=== PATIENT | male | born 1960 | race Caucasian/White ===

== ENCOUNTER 2019-10-20 01:05 | Emergency (ER) | payer MEDICAID ==
[~2019-10-20] VITALS: Ht 172.7 cm; Wt 77.3 kg
--- NOTE | 2019-10-20 01:27 | NUR ---
pt cannot recall what his seizure medication or pain medications are
[2019-10-20 02:27] LABS: URINE AMPHETAMINE SCREEN POSITIVE (Neg); URINE BARBITUATE SCREEN NEGATIVE (Neg); URINE BENZODIAZEPINES SCREEN NEGATIVE (Neg); URINE CANNABINOID SCREEN NEGATIVE (Neg); URINE COCAINE SCREEN NEGATIVE (Neg); URINE METHADONE SCREEN NEGATIVE (Neg); URINE OPIATE SCREEN NEGATIVE (Neg); URINE PHENCYCLIDINE SCREEN NEGATIVE (Neg)
[2019-10-20 02:32] LABS: BASOPHILS % (AUTO) 0.6 % (0-1); EOSINOPHILS # (AUTO) 0.2 X10'3 (0-0.9); EOSINOPHILS % (AUTO) 1.9 % (0-6); HEMOGLOBIN 15.2 g/dl (14.0-17.9); LYMPHOCYTES # (AUTO) 2.2 X10'3 (1.1-4.8); LYMPHOCYTES % (AUTO) 25.1 % (21-51); MEAN CORPUSCULAR HEMOGLOBIN 33.1 PG (27.0-31.0); MEAN CORPUSCULAR HGB CONC 34.5 g/dL (33.0-36.5); MEAN CORPUSCULAR VOLUME 95.9 FL (78-98); MEAN PLATELET VOLUME 7.8 FL (7.4-10.4); MONOCYTES # (AUTO) 0.7 X10'3 (0-0.9); MONOCYTES % (AUTO) 8.1 % (2-12); NEUTROPHILS # (AUTO) 5.7 X10'3 (1.8-7.7); NEUTROPHILS % (AUTO) 64.3 % (42-75); PLATELET COUNT 254 X10'3 (140-440); RED BLOOD COUNT 4.59 X10'6 (4.70-6.10); RED CELL DISTRIBUTION WIDTH 13.7 % (11.5-14.5); WHITE BLOOD COUNT 8.9 X10'3 (4.5-11.0)
[2019-10-20 02:33] LABS: ALANINE AMINOTRANSFERASE 25 U/L (12-78); ALBUMIN 4.1 G/DL (3.4-5.0); ALBUMIN/GLOBULIN RATIO 1.2 (1.1-1.5); ALKALINE PHOSPHATASE 75 IU/L (46-116); ANION GAP 9 (8-16); ASPARTATE AMINO TRANSFERASE 24 U/L (10-37); BILIRUBIN,TOTAL 1.1 MG/DL (0.1-1.0); BLOOD UREA NITROGEN 7 MG/DL (7-18); BUN/CREATININE RATIO 8.8 (5.4-32.0); CALCIUM 8.9 MG/DL (8.5-10.1); CHLORIDE 106 MMOL/L (99-107); GLUCOSE 86 MG/DL (70-104); POTASSIUM 3.9 MMOL/L (3.5-5.1); SODIUM 141 MMOL/L (135-145); TOTAL CARBON DIOXIDE 26.2 MMOL/L (24-32); TOTAL PROTEIN 7.5 G/DL (6.4-8.2); eGFR > 90 ML/MIN
[2019-10-20 02:43] LABS: ACETAMINOPHEN < 2.0 UG/ML (10-30)
[2019-10-20] MEDS ORDERED: KEP500T PO (03:05)
--- NOTE | 2019-10-20 06:18 | NUR ---
Patient sleeping supine (reclining) with the covers over his head. No distress observed. Continue to monitor.
--- NOTE | 2019-10-20 07:50 | NUR ---
Patient states he is depressed and he needs another hip replacement. Patient states he has problems walking around and wants to be taken care of. Patient lives with his mother and sleeps in the living room. Patient described where his brother lives and RN stated it sounds like he is conserved. Patient stated yes. Patient does not have mental health problems and does not meet criteria for conservatorship. Patient denies suicidal ideation but patient is depressed. Consider to monitor.
--- NOTE | 2019-10-20 08:20 | NUR ---
Patient eating breakfast. No distress observed. Continue to monitor.
[2019-10-20] MEDS: levetiracetam 250mg tablet PO SCH ×2 (08:52→20:34)
[2019-10-20] MEDS: LORazepam 1 MG tablet PO PRN (09:34)
--- NOTE | 2019-10-20 10:40 | NUR ---
[facility] evaluating patient.
--- NOTE | 2019-10-20 11:32 | NUR ---
[id number] placed by [facility]
--- NOTE | 2019-10-20 12:22 | NUR ---
pt up to use restroom .breaking primary nurse at this time,no distress noted ,will cont to monitor.
--- NOTE | 2019-10-20 13:22 | NUR ---
Patient eating lunch. No distress observed. Contiue to monitor.
--- NOTE | 2019-10-20 15:24 | NUR ---
Patient reclining asleep in bed. No distress observed. Patient is pending placement. Continue to monitor.
--- NOTE | 2019-10-20 16:27 | NUR ---
patient on high fowlers asleep,we will monitor.
--- NOTE | 2019-10-20 18:45 | NUR ---
Patient sleeping, low fowlers position. No distress.
--- NOTE | 2019-10-20 19:30 | NUR ---
Patient is sleeping is a low fowlers position. He awakens to voice, he is compliant with care.
--- NOTE | 2019-10-20 20:34 | NUR ---
Patient was given nightime Rx, including Ativan for anxiety. Patient is medication and cooperative with staff.
--- NOTE | 2019-10-20 22:00 | NUR ---
Patient is sleeping quietly, no distress.
--- NOTE | 2019-10-21 00:01 | NUR ---
Patient sleeping quietly. Patient self repositions.
[2019-10-21] MEDS: LORazepam 1 MG tablet PO PRN (02:59)
--- NOTE | 2019-10-21 03:13 | NUR ---
Still sleeping. No distress, pink, W/D.
--- NOTE | 2019-10-21 05:57 | NUR ---
Sleeping quietly, low fowlers position in bed.
--- NOTE | 2019-10-21 06:45 | NUR ---
PT RESTING WITH EYES CLOSED, EFFORTLESS RESPIRATIONS OBSERVED.
[2019-10-21] MEDS: levetiracetam 250mg tablet PO SCH ×2 (08:09→20:22)
--- NOTE | 2019-10-21 08:20 | NUR ---
PT REMAINS CALM AND COOPERATIVE AND HAS BEEN SITTING AT SIDE OF BED EATING BREAKFAST TRAY
--- NOTE | 2019-10-21 10:30 | NUR ---
PT HAS BEEN UP AND AMBULATED TO RESTROOM AND BACK TO ROOM A COUPLE OF TIMES THIS AM. PT CONTINUES TO DENIE NEEDS AND REMAINS IN NO OBSERVABLE DISTRESS.
--- NOTE | 2019-10-21 12:10 | NUR ---
PT WAS UP ASKING TIME AND WHEN LUNCH TRAYS TO COME, PT UPDATED OF USUAL ARRIVAL TIMES, PT NOW LAYING BACK IN BED RESTING.
--- NOTE | 2019-10-21 19:02 | NUR ---
Patient awoke, ate dinner, went to bathroom. He then returned to bed to sleep.
--- NOTE | 2019-10-21 20:03 | NUR ---
Patient sleeping on his right side. No distress. In view from nursing station.
--- NOTE | 2019-10-21 21:35 | NUR ---
Patient sleeping quietly in a supine position.
--- NOTE | 2019-10-22 00:01 | NUR ---
Patient sleeping on his left side. Color is good. No distress. Patient repositions self from time to time.
--- NOTE | 2019-10-22 01:50 | NUR ---
Patient sleeping in supine position. No distress.
--- NOTE | 2019-10-22 02:47 | NUR ---
Report to Carli at [facility]. Patient is being considered for admission to their [facility] hospital.
--- NOTE | 2019-10-22 03:12 | NUR ---
Patient sleeping supine. No distress. In view from nursing station.
--- NOTE | 2019-10-22 05:07 | NUR ---
Patient is sleeping quietly on his right side. No distress.
[2019-10-22 05:37] VITALS: BP 110/68
--- NOTE | 2019-10-22 07:00 | NUR ---
PT IS SLEEPING. NO ISSUES AT THIS TIME
--- NOTE | 2019-10-22 08:00 | NUR ---
PT IS SLEEPING. NO ISSUES AT THIS TIME
[2019-10-22] MEDS: levetiracetam 250mg tablet PO SCH (08:13)
--- NOTE | 2019-10-22 09:00 | NUR ---
PT IS SLEEPING. NO ISSUES AT THIS TIME
--- NOTE | 2019-10-22 10:00 | NUR ---
PT IS SLEEPING. NO ISSUES AT THIS TIME
--- NOTE | 2019-10-22 11:00 | NUR ---
PT IS SLEEPING. NO ISSUES AT THIS TIME
[2019-10-22 11:45] LABS: CLARITY,URINE CLEAR (Clear); COLOR,URINE YELLOW (Yellow); GLUCOSE, URINE NEGATIVE (Neg); KETONES,URINE NEGATIVE (Neg); LEUKOCYTE ESTERASE ,URINE NEGATIVE (Neg); NITRITES, URINE NEGATIVE (Neg); OCCULT BLOOD,URINE NEGATIVE (Neg); PROTEIN,URINE NEGATIVE (Neg); UROBILINOGEN,URINE 0.2 E.U/dL (0.2-1.0)
[2019-10-22 11:46] LABS: UA COLLECTION TYPE CLN CATCH MIDSTREAM
--- NOTE | 2019-10-22 12:00 | NUR ---
PT IS SLEEPING. NO ISSUES AT THIS TIME
--- NOTE | 2019-10-22 13:00 | NUR ---
PT IS SLEEPING. NO ISSUES AT THIS TIME
--- NOTE | 2019-10-22 14:00 | NUR ---
PT IS SLEEPING. NO ISSUES AT THIS TIME
--- NOTE | 2019-10-22 15:00 | NUR ---
PT IS SLEEPING. NO ISSUES AT THIS TIME
--- NOTE | 2019-10-22 16:00 | NUR ---
PT IS SLEEPING. NO ISSUES AT THIS TIME
== END 2019-10-22 16:59 ==
LOC: ER 01:05
DX: R45.851 Suicidal ideations (principal); F15.90 Other stimulant use, unspecified, uncomplicated; Z88.8 Allergy status to other drugs, medicaments and biological substances; Z79.899 Other long term (current) drug therapy
CPT/HCPCS: 36415; 80053; 80305; 80320; 80329; 81003; 84443; 85025; 99285